=== PATIENT | male | born 1970 | race Caucasian/White ===

== ENCOUNTER 2018-08-15 12:13 | Emergency (ER) | payer OTHER ==
[2018-08-15 12:30] LABS: ADD MAN DIFF? NO
[2018-08-15 12:39] LABS: BASOPHILS % 0.3 % (0.0-2.0); EOSINOPHILS % 0.2 % (0.0-7.0); HEMATOCRIT 42.1 % (42.0-52.0); HEMOGLOBIN 14.4 g/dl (14.0-18.0); LYMPHOCYTES # 0.7 10^3/ul (0.8-2.9); LYMPHOCYTES % 5.9 % (15.0-51.0); MEAN CORPUSCULAR HEMOGLOBIN 30.9 pg (29.0-33.0); MEAN CORPUSCULAR HGB CONC 34.2 g/dl (32.0-37.0); MEAN CORPUSCULAR VOLUME 90.3 fl (82.0-101.0); MEAN PLATELET VOLUME 11.6 fl (7.4-10.4); MONOCYTE # 0.4 10^3/ul (0.3-0.9); MONOCYTES % 3.1 % (0.0-11.0); NEUTROPHIL # 10.8 10^3/ul (1.6-7.5); NEUTROPHILS % 89.8 % (39.0-77.0); PLATELET COUNT 190 10^3/UL (140-415); RED BLOOD COUNT 4.66 10^6/ul (4.70-6.10); RED CELL DISTRIBUTION WIDTH 12.8 % (11.5-14.5)
[2018-08-15] MEDS: SODIUM CHLORIDE 0.9% 1L BAG IV* (12:48)
[2018-08-15] MEDS: KETOROLAC 30 MG INJ IV ×2 (12:51→13:23)
[2018-08-15] MEDS: ACETAMINOPHEN 325 MG TAB PO (12:53)
[2018-08-15 12:54] LABS: INR 0.94; PROTIME 12.7 Sec (11.9-14.9)
[2018-08-15 12:58] LABS: ALANINE AMINOTRANSFERASE 36 IU/L (13-69); ALBUMIN 4.4 g/dl (3.3-4.9); ALBUMIN/GLOBULIN RATIO 1.22; ALKALINE PHOSPHATASE 125 IU/L (42-121); ANION GAP 10 (5-13); ASPARTATE AMINO TRANSFERASE 28 IU/L (15-46); BILIRUBIN,INDIRECT 0.1 mg/dl (0-1.1); BILIRUBIN,TOTAL 0.1 mg/dl (0.2-1.3); BLOOD UREA NITROGEN 13 mg/dl (7-20); CALCIUM 9.8 mg/dl (8.4-10.2); CARBON DIOXIDE 24 mmol/L (21-31); CHLORIDE 104 mmol/L (97-110); Estimated GFR > 60 mL/min (>60); GLUCOSE 165 mg/dl (70-220); POTASSIUM 4.1 mmol/L (3.5-5.1); SODIUM 138 mmol/L (135-144)
[2018-08-15 13:06] LABS: TROPONIN-I < 0.012 ng/ml (0.000-0.120)
[2018-08-15] MEDS ORDERED: KETOROLAC 30 MG INJ IV (13:16)
[2018-08-15] MEDS: METOCLOPRAMIDE 10 MG INJ IV (13:20)
[2018-08-15] MEDS: DIPHENHYDRAMINE 50 MG INJ IV (13:20)
[2018-08-15 13:25] LABS: PARTIAL THROMBOPLASTIN TIME 26.4 Sec (23.0-35.0)
== END 2018-08-15 15:35 | disposition home or self-care (01) ==
LOC: E/R 12:13
DX: J11.1 Influenza due to unidentified influenza virus with other respiratory manifestations (principal); R07.9 Chest pain, unspecified
CPT/HCPCS: 36415; 71045; 80053; 83605; 84484; 85025; 85610; 85730; 87040; 87400; 93005; 96374; 96375; 96376; 99285-25